=== PATIENT | male | born 1965 | race Caucasian/White ===

== ENCOUNTER 2019-10-14 09:47 | Day surgery (SDC) | payer BC ==
[2019-10-13 12:35] VITALS: BMI 28.1
[2019-10-14 10:56] VITALS: TEMP 98
[2019-10-14 12:19] VITALS: BP 115/75; PULSE 50
== END 2019-10-14 12:00 | disposition home or self-care (01) ==
LOC: JASU-ENDO 09:47
PROVIDERS: ATTEND Internal Medicine Gastroenterology
PROC: 0DB68ZX Excision of Stomach, Via Natural or Artificial Opening Endoscopic, Diagnostic (ICD-10-PCS; principal; 2019-10-14 11:15)
DX: R10.13 Epigastric pain (principal)

== ENCOUNTER 2022-08-15 05:37 | Day surgery (SDC) | payer BC ==
[2022-08-13 14:32] VITALS: BMI 28.8
[2022-08-15 11:29] VITALS: TEMP 97.1
[2022-08-15 11:57] VITALS: BP 114/59; PULSE 52; RESP 15
== END 2022-08-15 12:15 | disposition home or self-care (01) ==
LOC: JASU-ENDO 05:37
PROVIDERS: ATTEND Internal Medicine Gastroenterology
PROC: 0DBN8ZX Excision of Sigmoid Colon, Via Natural or Artificial Opening Endoscopic, Diagnostic (ICD-10-PCS; 2022-08-15)
PROC: 0DBP8ZX Excision of Rectum, Via Natural or Artificial Opening Endoscopic, Diagnostic (ICD-10-PCS; principal; 2022-08-15 09:45)
DX: Z12.12 Encounter for screening for malignant neoplasm of rectum (principal); K63.5 Polyp of colon; D12.8 Benign neoplasm of rectum; K64.8 Other hemorrhoids
CPT/HCPCS: 82962; 88305-TC